=== PATIENT | female | born 1970 | race American Indian/Alaskan Native ===

== ENCOUNTER 2020-01-02 10:29 | Emergency (ER) | payer OTHER ==
[2020-01-02] MEDS ORDERED: ASPIRIN 325 MG TAB PO ONE (10:46)
--- NOTE | 2020-01-02 11:36 | Emergency Department Report ---
ED General Adult HPI - General Chief complaint: Chest Pain Stated complaint: WEAKNESS/HEART PALPITATIONS PUI?: No Time Seen by Provider: 01/02/20 11:31 Source: patient, EMS Mode of arrival: Ambulatory Limitations: No Limitations - History of Present Illness Initial comments: This is a 49-year-old female history of asthma hypertension vertigo dyslipidemia obesity who presents with palpitations for the last 3 days. She also has epigastric discomfort. She feels generalized weak. She also has a history of anemia. Currently symptom-free. She arrived via EMS. -: Gradual, days(s) (3) Location: chest, abdomen Severity scale (0 -10): 3 Quality: dull Consistency: now resolved Improves with: none Worsens with: none Associated Symptoms: denies other symptoms - Related Data Previous Rx's Medication Instructions Recorded Last Taken Type Potassium Chloride [K-Dur] 2 tab PO QDAY 14 Days #28 tablet 01/02/20 Unknown Rx Allergies Allergy/AdvReac Type Severity Reaction Status Date / Time No Known Allergies Allergy Verified 01/02/20 10:46 ED Review of Systems ROS: Stated complaint: WEAKNESS/HEART PALPITATIONS Other details as noted in HPI Comment: All other systems reviewed and negative Constitutional: denies: fever, malaise Cardiovascular: palpitations Gastrointestinal: abdominal pain ED Past Medical Hx - Past Medical History Previous Medical History?: Yes Hx Hypertension: Yes Hx Asthma: Yes Additional medical history: vertigo, hyperlipidemia, anemia - Social History Smoking Status: Never Smoker - Medications Home Medications: Home Medications Medication Instructions Recorded Confirmed Last Taken Type Potassium Chloride [K-Dur] 2 tab PO QDAY 14 Days #28 tablet 01/02/20 Unknown Rx ED Physical Exam - General Limitations: No Limitations General appearance: alert, in no apparent distress - Head Head exam: Present: atraumatic, normocephalic - Eye Eye exam: Present: normal appearance - ENT ENT exam: Present: mucous membranes moist - Neck Neck exam: Present: normal inspection, full ROM - Respiratory Respiratory exam: Present: normal lung sounds bilaterally. Absent: respiratory distress, wheezes, rales, rhonchi - Cardiovascular Cardiovascular Exam: Present: regular rate, normal rhythm, normal heart sounds. Absent: systolic murmur, diastolic murmur, rubs, gallop - GI/Abdominal GI/Abdominal exam: Present: soft, normal bowel sounds. Absent: distended, tenderness, guarding, rebound - Extremities Exam Extremities exam: Present: normal inspection - Neurological Exam Neurological exam: Present: alert, oriented X3 - Psychiatric Psychiatric exam: Present: normal affect, normal mood - Skin Skin exam: Present: warm, dry, intact, normal color. Absent: rash ED Course Vital Signs 01/02/20 01/02/20 10:38 11:24 Temperature 98.2 F Pulse Rate 78 82 Respiratory 18 18 Rate Blood Pressure 183/92 Blood Pressure 154/86 [Left] O2 Sat by Pulse 96 100 Oximetry ED Medical Decision Making - Lab Data Result diagrams: 01/02/20 11:42 01/02/20 11:42 Laboratory Results - last 24 hr 01/02/20 01/02/20 11:42 11:42 WBC 7.8 RBC 5.24 H Hgb 12.1 Hct 36.8 MCV 70 L MCH 23 L MCHC 33 RDW 21.1 H Plt Count 284 Lymph % (Auto) 16.6 [place] % (Auto) 8.9 H Eos % (Auto) 0.3 Baso % (Auto) 0.4 Lymph # 1.3 [place] # 0.7 Eos # 0.0 Baso # 0.0 Seg Neutrophils % 73.8 H Seg Neutrophils # 5.8 Sodium 139 Potassium 3.4 L Chloride 100.8 Carbon Dioxide 24 Anion Gap 18 BUN 13 Creatinine 0.7 Estimated GFR > 60 BUN/Creatinine Ratio 19 Glucose 143 H Calcium 9.5 Troponin T < 0.010 - EKG Data 01/02/20 11:34 EKG obtained 1104 Normal sinus rhythm rate 80 bpm normal axis normal intervals no ST elevation nonspecific T wave pattern - Radiology Data Radiology results: report reviewed No acute findings chest radiograph according to radiology impression - Medical Decision Making Patient presents with palpitations and epigastric pain. No evidence of arrhythmia at this time. Differential diagnosis includes PVCs, paroxysmal atrial fibrillation. I do not suspect acute coronary syndrome or pulmonary embolism. I have referred her to [facility]. I strongly recommended cardiac stress testing and cardiology evaluation. Epigastric pain possibly due to dyspepsia, peptic ulcer disease, GERD. I recommended famotidine [id number]. Mild hypokalemia patient states that she may be on diuretic. Prescribed 2 weeks of potassium chloride. She will follow-up with her primary care physician Vital Signs - 24 hr 06/01/20 06/01/20 10:38 11:24 Temperature 98.2 F Pulse Rate 78 82 Respiratory 18 18 Rate Blood Pressure 183/92 Blood Pressure 154/86 [Left] O2 Sat by Pulse 96 100 Oximetry Critical care attestation.: If time is entered above; I have spent that time in minutes in the direct care of this critically ill patient, excluding procedure time. ED Disposition Clinical Impression: Palpitations, Hypokalemia Disposition: DC- TO HOME OR SELFCARE Is pt being admited?: No Does the pt Need Aspirin: No Condition: Stable Instructions: Palpitations (ED), Hypokalemia (ED) Prescriptions: Potassium Chloride [K-Dur] 2 tab PO QDAY 14 Days #28 tablet Referrals: PRIMARY CARE, [Referring] - BRYN
--- NOTE | 2020-01-02 11:55 | XRay Report ---
CHEST 1 VIEW 01/02/2020 10:48 AM INDICATION / CLINICAL INFORMATION: Chest Pain. COMPARISON: None available. FINDINGS: SUPPORT DEVICES: None. HEART / MEDIASTINUM: No significant abnormality. LUNGS / PLEURA: No significant pulmonary or pleural abnormality. No pneumothorax. ADDITIONAL FINDINGS: No significant additional findings. IMPRESSION: 1. No acute abnormality of the chest. Signer Name: Wilian Gray MD Signed: 01/02/2020 11:50 AM Workstation Name: [id number]
[2020-01-02 11:57] LABS: Basophils % (Auto) 0.4 % (0.0-1.8); Eosinophils % (Auto) 0.3 % (0.0-4.3); Hematocrit 36.8 % (30.3-42.9); Hemoglobin 12.1 gm/dl (10.1-14.3); Lymphocytes # (Auto) 1.3 K/mm3 (1.2-5.4); Lymphocytes % (Auto) 16.6 % (13.4-35.0); Mean Corpuscular HGB Conc 33 % (30-34); Mean Corpuscular Volume 70 fl (79-97); Monocytes # (Auto) 0.7 K/mm3 (0.0-0.8); Monocytes % (Auto) 8.9 % (0.0-7.3); Platelet Count 284 K/mm3 (140-440); Red Blood Count 5.24 M/mm3 (3.65-5.03)
[2020-01-02 11:59] LABS: Red Cell Distribution Width 21.1 % (13.2-15.2)
[2020-01-02 12:18] LABS: BUN/Creatinine Ratio 19; Blood Urea Nitrogen 13 mg/dL (7-17); Calcium 9.5 mg/dL (8.4-10.2); Hemolysis Index 19
[2020-01-02 12:55] VITALS: BP 140/76
== END 2020-01-02 13:09 | disposition home or self-care (01) ==
LOC: ED 10:29
DX: R00.2 Palpitations (principal); E87.6 Hypokalemia; I10 Essential (primary) hypertension; J45.909 Unspecified asthma, uncomplicated; R42 Dizziness and giddiness; D64.9 Anemia, unspecified; E78.5 Hyperlipidemia, unspecified; Z79.899 Other long term (current) drug therapy
CPT/HCPCS: 36415; 71045; 80048; 84484; 85025

== ENCOUNTER 2020-02-20 21:09 | Emergency (ER) | payer OTHER ==
[2020-02-20 23:14] LABS: Basophils # (Auto) 0.1 K/mm3 (0.0-0.1); Basophils % (Auto) 0.8 % (0.0-1.8); Eosinophils # (Auto) 0.1 K/mm3 (0.0-0.4); Eosinophils % (Auto) 0.7 % (0.0-4.3); Hematocrit 38.7 % (30.3-42.9); Hemoglobin 12.2 gm/dl (10.1-14.3); Lymphocytes # (Auto) 2.6 K/mm3 (1.2-5.4); Lymphocytes % (Auto) 26.3 % (13.4-35.0); Mean Corpuscular HGB Conc 32 % (30-34); Mean Corpuscular Volume 73 fl (79-97); Monocytes # (Auto) 0.9 K/mm3 (0.0-0.8); Monocytes % (Auto) 8.9 % (0.0-7.3); Platelet Count 280 K/mm3 (140-440); Red Blood Count 5.29 M/mm3 (3.65-5.03); Red Cell Distribution Width 16.6 % (13.2-15.2)
[2020-02-20 23:35] LABS: Alanine Aminotransferase 20 units/L (7-56); Albumin 4.3 g/dL (3.9-5); BUN/Creatinine Ratio 15; Blood Urea Nitrogen 9 mg/dL (7-17); Calcium 9.2 mg/dL (8.4-10.2); Hemolysis Index 21
[2020-02-21 01:16] LABS: Bilirubin,Urine NEG (Negative); Blood,Urine NEG (Negative); Color,Urine Yellow (Yellow); Mucus,Urine FEW /HPF; Protein,Urine <15 mg/dL mg/dL (Negative); Urobilinogen,Urine < 2.0 mg/dL (<2.0); WBC,Urine < 1.0 /HPF (0.0-6.0)
--- NOTE | 2020-02-21 04:07 | Emergency Department Report ---
- General Chief complaint: Abdominal Pain Stated complaint: WEAKNESS PUI?: No Time Seen by Provider: 02/21/20 03:57 Source: patient Mode of arrival: Ambulatory Limitations: No Limitations - History of Present Illness Initial comments: This is a 49-year-old female with history of hypertension asthma hypokalemia who presents with generalized weakness. She has fatigue. She has increased appetite. She was evaluated by her physician today. Serum studies were obtained to evaluate for hormone imbalance perimenopausal syndrome. Her diuretic was discontinued due to hypokalemia. She denies abdominal pain. She denies chest pain. She denies cough. Denies fever. MD Complaint: generalized weakness -: Gradual, week(s) (Several weeks) Location: generalized Severity: moderate Consistency: constant Improves with: none Worsens with: none Context: new medication Associated Symptoms: denies other symptoms - Related Data Previous Rx's Medication Instructions Recorded Last Taken Type Ondansetron [Zofran Odt] 4 mg PO Q8HR #30 tab.rapdis 02/15/20 Unknown Rx Potassium Chloride [K-Dur] 2 tab PO QDAY 14 Days #28 tablet 02/15/20 Unknown Rx Allergies Allergy/AdvReac Type Severity Reaction Status Date / Time tramadol Allergy Vomiting Verified 02/20/20 22:39 ED Review of Systems ROS: Stated complaint: WEAKNESS Other details as noted in HPI Comment: All other systems reviewed and negative Constitutional: malaise. denies: fever Respiratory: denies: cough, shortness of breath Cardiovascular: denies: chest pain Gastrointestinal: denies: abdominal pain, nausea, vomiting ED Past Medical Hx - Past Medical History Previous Medical History?: Yes Hx Hypertension: Yes Hx Asthma: Yes Additional medical history: vertigo, hyperlipidemia, anemia - Surgical History Past Surgical History?: Yes Additional Surgical History: x2 - Social History Smoking Status: Never Smoker Substance Use Type: None - Medications Home Medications: Home Medications Medication Instructions Recorded Confirmed Last Taken Type Ondansetron [Zofran Odt] 4 mg PO Q8HR #30 tab.rapdis 02/15/20 Unknown Rx Potassium Chloride [K-Dur] 2 tab PO QDAY 14 Days #28 tablet 02/15/20 Unknown Rx ED Physical Exam - General Limitations: No Limitations General appearance: alert, in no apparent distress - Head Head exam: Present: atraumatic, normocephalic - Eye Eye exam: Present: normal appearance - ENT ENT exam: Present: mucous membranes moist - Neck Neck exam: Present: normal inspection - Respiratory Respiratory exam: Present: normal lung sounds bilaterally. Absent: respiratory distress - Cardiovascular Cardiovascular Exam: Present: regular rate, normal rhythm, normal heart sounds. Absent: systolic murmur, diastolic murmur, rubs, gallop - GI/Abdominal GI/Abdominal exam: Present: soft, normal bowel sounds. Absent: distended, tenderness, guarding, rebound - Extremities Exam Extremities exam: Present: normal inspection - Neurological Exam Neurological exam: Present: alert, oriented X3 - Psychiatric Psychiatric exam: Present: normal affect, normal mood - Skin Skin exam: Present: warm, dry, intact, normal color. Absent: rash ED Medical Decision Making - Lab Data Result diagrams: 02/20/20 22:51 02/20/20 22:51 Laboratory Results - last 24 hr 02/20/20 02/20/20 02/20/20 22:51 22:51 Unknown WBC 10.0 RBC 5.29 H Hgb 12.2 Hct 38.7 MCV 73 L MCH 23 L MCHC 32 RDW 16.6 H Plt Count 280 Lymph % (Auto) 26.3 [place] % (Auto) 8.9 H Eos % (Auto) 0.7 Baso % (Auto) 0.8 Lymph # 2.6 [place] # 0.9 H Eos # 0.1 Baso # 0.1 Seg Neutrophils % 63.3 Seg Neutrophils # 6.3 Sodium 137 Potassium 4.1 Chloride 104.2 Carbon Dioxide 20 L Anion Gap 17 BUN 9 Creatinine 0.6 L Estimated GFR > 60 BUN/Creatinine Ratio 15 Glucose 117 H Calcium 9.2 Total Bilirubin 0.20 AST 20 ALT 20 Alkaline Phosphatase 47 Total Protein 8.4 H Albumin 4.3 Albumin/Globulin Ratio 1.0 Lipase 43 Urine Color Yellow Urine Turbidity Clear Urine pH 6.0 Ur Specific [place] 1.011 Urine Protein <15 mg/dl Urine Glucose (UA) Neg Urine Ketones Neg Urine Blood Neg Urine Nitrite Neg Urine Bilirubin Neg Urine Urobilinogen < 2.0 Ur Leukocyte Esterase Neg Urine WBC (Auto) < 1.0 Urine RBC (Auto) 2.0 U Epithel Cells (Auto) 2.0 Urine Mucus Few - Medical Decision Making This is a 49-year-old who presents with generalized malaise, fatigue, increased appetite. CBC noted for microcytosis. Normal hemoglobin hematocrit. Potassium 4.1 today. I suggested evaluation for hypothyroidism and COVID-19 infection. Also recommended daily multivitamin. Patient is likely nutrient deficient with the evidence of microcytosis on complete blood count. Discharged home. Critical care attestation.: If time is entered above; I have spent that time in minutes in the direct care of this critically ill patient, excluding procedure time. ED Disposition Clinical Impression: Generalized weakness Disposition: DC-01 TO HOME OR SELFCARE Is pt being admited?: No Does the pt Need Aspirin: No Condition: Stable Instructions: Weakness (ED) Referrals: PRIMARY CARE, [Primary Care Provider] - 3-5 Days
[2020-02-21 05:20] VITALS: BP 173/108
== END 2020-02-21 04:20 | disposition home or self-care (01) ==
LOC: ED 21:09
DX: R53.1 Weakness (principal); R53.83 Other fatigue; I10 Essential (primary) hypertension; J45.909 Unspecified asthma, uncomplicated; Z86.2 Personal history of diseases of the blood and blood-forming organs and certain disorders involving the immune mechanism; Z98.890 Other specified postprocedural states; Z88.6 Allergy status to analgesic agent
CPT/HCPCS: 36415; 80053; 81001; 83690; 85025; 99283

== ENCOUNTER 2020-03-30 10:42 | Observation (INO) | payer OTHER ==
--- NOTE | 2020-03-30 11:04 | Emergency Department Report ---
HPI - General Chief Complaint: Neuro Symptoms/Deficit Time Seen by Provider: 03/30/20 10:49 - HPI HPI: This is a 49-year-old -[place] female presents to the emergency department via EMS from home as a potential code stroke. EMS says that there in itial call was for left-sided weakness, left-sided facial droop and stuttering slurred speech. At the time of my examination the patient is singing very loudly without any stuttering or slurred speech and does not have any obvious left-sided droop or weakness. When I asked the patient what occurred this morning the patient began stuttering and describing the previously mentioned symptoms, as well as a generalized headache. Based on her chart, and her recent visits here, the patient has a past medical history of hypertension, asthma, and potentially some perimenopausal hormone imbalance. She did not receive anything for symptoms in route. ED Past Medical Hx - Past Medical History Hx Hypertension: Yes Hx Asthma: Yes Additional medical history: vertigo, hyperlipidemia, anemia - Surgical History Additional Surgical History: x2 - Social History Smoking Status: Never Smoker - Medications Home Medications: Home Medications Medication Instructions Recorded Confirmed Last Taken Type Ondansetron [Zofran Odt] 4 mg PO Q8HR #30 tab.rapdis 02/15/20 Unknown Rx Potassium Chloride [K-Dur] 2 tab PO QDAY 14 Days #28 tablet 02/15/20 Unknown Rx ED Review of Systems ROS: Stated complaint: STROKE Other details as noted in HPI Comment: All other systems reviewed and negative Constitutional: weakness. denies: chills, fever Eyes: denies: eye pain, vision change ENT: denies: ear pain, throat pain Respiratory: denies: cough, shortness of breath Cardiovascular: denies: chest pain, palpitations Gastrointestinal: denies: abdominal pain, vomiting Genitourinary: denies: dysuria, discharge Musculoskeletal: denies: back pain, arthralgia Skin: denies: rash, lesions Neurological: headache, weakness, other (stuttering slurred speech) Physical Exam - Physical Exam Physical Exam: GENERAL: The patient is well-developed well-nourished. HENT: Normocephalic. Atraumatic. Patient has moist mucous membranes. EYES: Extraocular motions are intact. No nystagmus. NECK: Supple. Trachea is midline. CHEST/LUNGS: Clear to auscultation. There is no respiratory distress noted. HEART/CARDIOVASCULAR: Regular. There is no tachycardia. ABDOMEN: Abdomen is soft, nontender. Patient has normal bowel sounds. There is no abdominal distention. SKIN: Skin is warm and dry. NEURO: The patient is awake, alert, and oriented. The patient is cooperative. The patient has no focal neurologic deficits. There is some stuttering speech with mild aphasia. Cranial nerves II through XII grossly intact. No facial asymmetry. MUSCULOSKELETAL: There is no tenderness or deformity. There is no limitation range of motion. There is no evidence of acute injury. ED Course - Reevaluation(s) Reevaluation #1: 03/30/20 16:57 Lab Results 03/30/20 03/30/20 03/30/20 Range/Units 11:13 11:13 11:13 WBC 9.0 (4.5-11.0) K/mm3 RBC 5.23 H (3.65-5.03) M/mm3 Hgb 11.7 (10.1-14.3) gm/dl Hct 36.4 (30.3-42.9) % MCV 70 L (79-97) fl MCH 23 L (28-32) pg MCHC 32 (30-34) % RDW 17.1 H (13.2-15.2) % Plt Count 302 (140-440) K/mm3 Lymph % (Auto) 26.6 (13.4-35.0) % [place] % (Auto) 9.5 H (0.0-7.3) % Eos % (Auto) 0.8 (0.0-4.3) % Baso % (Auto) 0.5 (0.0-1.8) % Lymph # 2.4 (1.2-5.4) K/mm3 [place] # 0.8 (0.0-0.8) K/mm3 Eos # 0.1 (0.0-0.4) K/mm3 Baso # 0.0 (0.0-0.1) K/mm3 Seg Neutrophils % 62.6 (40.0-70.0) % Seg Neutrophils # 5.6 (1.8-7.7) K/mm3 PT 13.5 (12.2-14.9) Sec. INR 1.02 (0.87-1.13) APTT 26.1 (24.2-36.6) Sec. Thrombin Time (15.1-19.6) Sec. Sodium 141 (137-145) mmol/L Potassium 3.3 L (3.6-5.0) mmol/L Chloride 104.2 (98-107) mmol/L Carbon Dioxide 20 L (22-30) mmol/L Anion Gap 20 mmol/L BUN 14 (7-17) mg/dL Creatinine 1.0 (0.6-1.2) mg/dL Estimated GFR > 60 ml/min BUN/Creatinine Ratio 14 % Glucose 116 H (65-100) mg/dL Calcium 9.4 (8.4-10.2) mg/dL Troponin T < 0.010 (0.00-0.029) ng/mL Urine Opiates Screen Urine Methadone Screen Ur Barbiturates Screen Ur Phencyclidine Scrn Ur Amphetamines Screen U Benzodiazepines Scrn Urine Cocaine Screen U Marijuana (THC) Screen Drugs of Abuse Note Plasma/Serum Alcohol (0-0.07) % 03/30/20 03/30/20 03/30/20 Range/Units 11:13 11:13 12:33 WBC (4.5-11.0) K/mm3 RBC (3.65-5.03) M/mm3 Hgb (10.1-14.3) gm/dl Hct (30.3-42.9) % MCV (79-97) fl MCH (28-32) pg MCHC (30-34) % RDW (13.2-15.2) % Plt Count (140-440) K/mm3 Lymph % (Auto) (13.4-35.0) % [place] % (Auto) (0.0-7.3) % Eos % (Auto) (0.0-4.3) % Baso % (Auto) (0.0-1.8) % Lymph # (1.2-5.4) K/mm3 [place] # (0.0-0.8) K/mm3 Eos # (0.0-0.4) K/mm3 Baso # (0.0-0.1) K/mm3 Seg Neutrophils % (40.0-70.0) % Seg Neutrophils # (1.8-7.7) K/mm3 PT (12.2-14.9) Sec. INR (0.87-1.13) APTT (24.2-36.6) Sec. Thrombin Time 18.0 (15.1-19.6) Sec. Sodium (137-145) mmol/L Potassium (3.6-5.0) mmol/L Chloride (98-107) mmol/L Carbon Dioxide (22-30) mmol/L Anion Gap mmol/L BUN (7-17) mg/dL Creatinine (0.6-1.2) mg/dL Estimated GFR ml/min BUN/Creatinine Ratio % Glucose (65-100) mg/dL Calcium (8.4-10.2) mg/dL Troponin T (0.00-0.029) ng/mL Urine Opiates Screen Negative Urine Methadone Screen Negative Ur Barbiturates Screen Negative Ur Phencyclidine Scrn Negative Ur Amphetamines Screen Negative U Benzodiazepines Scrn Negative Urine Cocaine Screen Negative U Marijuana (THC) Screen Negative Drugs of Abuse Note Disclamer Plasma/Serum Alcohol < 0.01 (0-0.07) % - Consultations Consultation #1: 03/30/20 11:08 Patient was seen by the telemedicine neurologist upon her arrival to the CT scanner and he continued his evaluation after the CT scan of the head was completed with the patient back in room 23. The neurologist feels that there are some inconsistencies in the patient's examination but did recommend and offer TPA to the patient. The patient understands the risks versus benefits, as well as the reason for giving TPA, as well as the alternative options and she has declined receiving the TPA. The patient has also declined having CT angiography studies of the head and neck completed. 03/30/20 12:08 Patient still declines TPA but has agreed for the CT angiography studies which have now been ordered. ED Medical Decision Making - Lab Data Result diagrams: 03/30/20 11:13 03/30/20 11:13 - EKG Data -: EKG Interpreted by Ut EKG shows normal: sinus rhythm, axis, intervals, QRS complexes, ST-T waves Rate: normal - EKG Data When compared to previous EKG there are: previous EKG unavailable Interpretation: normal EKG - Radiology Data Radiology results: report reviewed CT HEAD WITHOUT CONTRAST INDICATION / CLINICAL INFORMATION: Code stroke TECHNIQUE: All CT scans at this location are performed using CT dose reduction for ALARA by means of automated exposure control. COMPARISON: None available. FINDINGS: HEMORRHAGE: No evidence of intracranial hemorrhage or extra-axial fluid collection. EXTRA-AXIAL SPACES: Cortical sulci, sylvian fissures and basilar cisterns have an unremarkable appearance. VENTRICULAR SYSTEM: The ventricular system is of normal size and configuration. CEREBRAL PARENCHYMA: No areas of abnormal brain parenchymal attenuation are identified. There is no indication of recent infarction. MIDLINE SHIFT OR HERNIATION: There is no mass effect. CEREBELLUM / BRAINSTEM: Brainstem and cerebellum have an unremarkable appearance. MIDLINE STRUCTURES:No abnormalities of the pituitary gland or pineal region are identified. INTRACRANIAL VESSELS:No abnormalities are identified on this noncontrast head CT. ORBITS: visualized portions of the orbits have an unremarkable appearance. SOFT TISSUES of HEAD: No significant abnormality. CALVARIUM: Evaluation of bone windows reveals no abnormalities. PARANASAL SINUSES / MASTOID AIR CELLS: Paranasal sinuses are free from inflammatory mucosal disease. Mastoid air cells are normally pneumatized. IMPRESSION: 1. No intracranial abnormalities are identified on head CT without contrast. CTA HEAD: Intracranial vertebral arteries: No significant abnormality. Basilar artery: No significant abnormality. Posterior cerebral arteries: No significant abnormality. Intracranial internal carotid arteries: No significant abnormality. Anterior cerebral arteries: No significant abnormality. Middle cerebral arteries: No significant abnormality. Dural venous sinuses:Not optimally opacified. No significant abnormality. CTA NECK: Aortic arch: No significant abnormality. Cervical vertebral arteries: No significant abnormality. Common carotid arteries: No significant abnormality. Cervical in ternal carotid arteries: No significant abnormality. Additional findings: None. IMPRESSION: 1. No large vessel occlusion or significant stenosis in the neck or intracranial arteries. - Medical Decision Making This patient presents to the emergency department with some left-sided weakness, slurred and stuttering speech that was witnessed by the family this morning. She came in as a code stroke. Upon my initial examination I do not see the left-sided weakness, facial asymmetry, and the patient is singing without any obvious aphasia or dysarthria. However, when the patient stops singing and starts to describe this morning's events she does once again have the stuttering speech and mild aphasia. CT scan of the head without contrast did not show any bleed, shift, mass, ischemia, or any other acute process. Patient was seen by the telemedicine neurologist who suggested TPA to the patient but she refused this treatment. At first the patient was refusing CT angiography studies as well but after I spoke with her she agreed to get the CT angiography to rule out large vessel occlusion. These came back negative for any thrombus, stenosis, or any other acute process. Patient's labs have been mostly unremarkable including CBC, metabolic panel, troponin, UDS, except for very mild hypokalemia that was treated with potassium chloride. The patient was given a full dose aspirin and will be admitted to the hospital for further evaluation and treatment. She was accepted for admission by the hospitalist, Dr. Valderrama. Critical Care Time: Yes Critical care time in (mins) excluding proc time.: 35 Critical care attestation.: If time is entered above; I have spent that time in minutes in the direct care of this critically ill patient, excluding procedure time. Critical care time was spent on this patient in doing her initial evaluation, multiple re- evaluations, ordering and interpretation of labs and imaging, discussion with the telemedicine neurologist, discussion with the radiologist, discussion with the hospitalist service, and multiple discussions with the patient herself. Critical Care Time: 35 minutes ED Disposition Clinical Impression: Difficulty speaking, Stroke-like symptoms Hypertension Qualifiers: Hypertension type: essential hypertension Qualified Code(s): I10 - Essential (primary) hypertension Disposition: 09 OP ADMIT IP TO THIS HOSP Is pt being admited?: No Condition: Fair Time of Disposition: 15:18
--- NOTE | 2020-03-30 11:11 | Emergency Department Report ---
ED Neuro Deficit HPI - General Chief Complaint: Neuro Symptoms/Deficit Stated Complaint: STROKE Time Seen by Provider: 03/30/20 10:49 Source: EMS Mode of arrival: Stretcher Limitations: Other - History of Present Illness Initial Comments: [facility] TeleNeurology Consult Services Date of Service: 03/30/2020 10:30:38 Impression: Rule Out Acute Ischemic Stroke Comments/Sign-Out: acute onset difficulty speaking/stuttering - Speech is only intermittently abnormal, and conversion disorder is possible. However, L frontotemporal stroke cannot be ruled out, and tpa was offered to the patient - after hearing the risks and benefits, she declined. A CTA head/neck was also attempted but the patient refused to have IV contrast. Mechanism of Stroke: Possible Thromboembolic Possible Cardioembolic Small Vessel Disease Metrics: Last Known Well: 03/30/2020 10:00:00 [employer] Notification Time: 03/30/2020 10:29:38 Arrival Time: 03/30/2020 10:42:00 Stamp Time: 03/30/2020 10:30:38 Time First Login Attempt: 03/30/2020 10:37:00 Video Start Time: 03/30/2020 10:37:00 Symptoms: difficulty speaking NIHSS Start Assessment Time: 03/30/2020 10:53:03 Patient is not a candidate for Alteplase/Activase. Patient was not deemed candidate for Alteplase/Activase thrombolytics because of The risks/benefits/alternatives of IV tpa, including a 6 percent risk of brain bleed and 3 percent risk of , was reviewed with the patient, and she declined IV tpa.. Video End Time: 03/30/2020 11:06:19 CT head showed no acute hemorrhage or acute core infarct. CT head was reviewed. Lower Likelihood of Large Vessel Occlusion but Following Stat Studies are Recommended CTA Head and Neck. ED Physician notified of diagnostic impression and management plan on 03/30/2020 11:06:20 Our recommendations are outlined below. Recommendations: Activate Stroke Protocol Admission/Order Set Stroke/Telemetry Floor Neuro Checks Bedside Swallow Eval DVT Prophylaxis IV Fluids, Normal Saline Head of Bed 30 Degrees Euglycemia and Avoid Hyperthermia (PRN Acetaminophen) start ASA if CT head is neg for hemorrhage. Routine Consultation with Inhouse Neurology for Follow up Care Sign Out: Discussed with Emergency Department Provider History of Present Illness: Patient is a 49 year old Female. Patient was brought by EMS for symptoms of difficulty speaking 49 yo woman who was LSN at approx 1000 when she started stuttering and having slurred speech. She also noted L facial weakness. The clinical change was witnessed by the patient's family at approx 1000. She did start singing en route, which was normal per EMS. No blood thinners. Of note, she was singing upon arrival without difficulty, but when asked what happened she started stuttering. Last seen normal was within 4.5 hours. There is no history of hemorrhagic complications or intracranial hemorrhage. There is no history of Recent Anticoagulants. There is no history of recent major surgery. There is no history of recent stroke. Past Medical History: Anticoagulant use: No Antiplatelet use: No Examination: 1A: Level of Consciousness - Alert; keenly responsive + 0 1B: Ask Month and Age - Both Questions Right + 0 1C: Blink Eyes & Squeeze Hands - Performs Both Tasks + 0 2: Test Horizontal Extraocular Movements - Normal + 0 3: Test Visual Gardiner - No Visual Loss + 0 4: Test Facial Palsy (Use Grimace if Obtunded) - Normal symmetry + 0 5A: Test Left Arm Motor Drift - No Drift for 10 Seconds + 0 5B: Test Right Arm Motor Drift - No Drift for 10 Seconds + 0 6A: Test Left Leg Motor Drift - No Drift for 5 Seconds + 0 6B: Test Right Leg Motor Drift - No Drift for 5 Seconds + 0 7: Test Limb Ataxia (FNF/Heel-Gregorio) - No Ataxia + 0 8: Test Sensation - Normal; No sensory loss + 0 9: Test Language/Aphasia - Severe Aphasia: Fragmentary Expression, Inference Needed, Cannot Identify Materials + 2 10: Test Dysarthria - Normal + 0 11: Test Extinction/Inattention - No abnormality + 0 NIHSS Score: 2 Patient/Family was informed the Neurology Consult would happen via TeleHealth consult by way of interactive audio and video telecommunications and consented to receiving care in this manner. Due to the immediate potential for life-threatening deterioration due to underlying acute neurologic illness, I spent 35 minutes providing critical care. This time includes time for face to face visit via telemedicine, review of [facility] records, imaging studies and discussion of findings with providers, the patient and/or family. Dr Pelon [facility] Case [id number] - Related Data Home Medications: Previous Rx's Medication Instructions Recorded Last Taken Type Ondansetron [Zofran Odt] 4 mg PO Q8HR #30 tab.rapdis 02/15/20 Unknown Rx Potassium Chloride [K-Dur] 2 tab PO QDAY 14 Days #28 tablet 02/15/20 Unknown Rx Allergies/Adverse Reactions: Allergies Allergy/AdvReac Type Severity Reaction Status Date / Time tramadol Allergy Vomiting Verified 02/20/20 22:39 ED Review of Systems ROS: Stated complaint: STROKE Other details as noted in HPI Constitutional: weakness. denies: chills, fever Eyes: denies: eye pain, vision change ENT: denies: ear pain, throat pain Respiratory: denies: cough, shortness of breath Cardiovascular: denies: chest pain, palpitations Gastrointestinal: denies: abdominal pain, vomiting Genitourinary: denies: dysuria, discharge Musculoskeletal: denies: back pain, arthralgia Skin: denies: rash, lesions Neurological: headache, weakness, other (stuttering slurred speech) ED Past Medical Hx - Past Medical History Hx Hypertension: Yes Hx Asthma: Yes Additional medical history: vertigo, hyperlipidemia, anemia - Surgical History Additional Surgical History: x2 - Social History Smoking Status: Never Smoker - Medications Home Medications: Home Medications Medication Instructions Recorded Confirmed Last Taken Type Ondansetron [Zofran Odt] 4 mg PO Q8HR #30 tab.rapdis 02/15/20 Unknown Rx Potassium Chloride [K-Dur] 2 tab PO QDAY 14 Days #28 tablet 02/15/20 Unknown Rx ED Neuro Physical Exam - General Limitations: Other Suspected Stroke: Yes - NIHSS Assessment Interval: Baseline 1a. Level of Consciousness: alert/keenly responsive 1b. LOC Questions: answers both correctly 1c. LOC Commands: performs tasks correctly 2. Best Gaze: normal 3. Visual: no visual loss 4. Facial Palsy: normal symmetrical movement 5b. Motor Arm Right: no drift 5a. Motor Arm Left: no drift 6a. Motor Leg Left: no drift 6b. Motor Leg Right: no drift 7. Limb Ataxia: absent 8. Sensory: normal 9. Best Language: severe aphasia 10. Dysarthria: normal 11. Extinction/Inattention: no abnormality Total Score: 2 Stroke Severity: Minor Stroke Critical care attestation.: If time is entered above; I have spent that time in minutes in the direct care of this critically ill patient, excluding procedure time. ED Disposition Clinical Impression: Difficulty speaking Disposition: DC09 OP ADMIT IP TO THIS HOSP Is pt being admited?: Yes Condition: Stable
[2020-03-30 11:20] LABS: Basophils % (Auto) 0.5 % (0.0-1.8); Eosinophils # (Auto) 0.1 K/mm3 (0.0-0.4); Eosinophils % (Auto) 0.8 % (0.0-4.3); Hematocrit 36.4 % (30.3-42.9); Hemoglobin 11.7 gm/dl (10.1-14.3); Lymphocytes # (Auto) 2.4 K/mm3 (1.2-5.4); Lymphocytes % (Auto) 26.6 % (13.4-35.0); Mean Corpuscular HGB Conc 32 % (30-34); Monocytes # (Auto) 0.8 K/mm3 (0.0-0.8); Monocytes % (Auto) 9.5 % (0.0-7.3); Platelet Count 302 K/mm3 (140-440); Red Blood Count 5.23 M/mm3 (3.65-5.03); Red Cell Distribution Width 17.1 % (13.2-15.2)
[2020-03-30 11:21] LABS: Mean Corpuscular Volume 70 fl (79-97)
--- NOTE | 2020-03-30 11:27 | Cat Scan Report ---
CT HEAD WITHOUT CONTRAST INDICATION / CLINICAL INFORMATION: Code stroke TECHNIQUE: All CT scans at this location are performed using CT dose reduction for ALARA by means of automated e xposure control. COMPARISON: None available. FINDINGS: HEMORRHAGE: No evidence of intracranial hemorrhage or extra-axial fluid collection. EXTRA-AXIAL SPACES: Cortical sulci, sylvian fissures and basilar cisterns have an unremarkable appear ance. VENTRICULAR SYSTEM: The ventricular system is of normal size and configuration. CEREBRAL PARENCHYMA: No areas of abnormal brain parenchymal attenuation are identified. There is no i ndication of recent infarction. MIDLINE SHIFT OR HERNIATION: There is no mass effect. CEREBELLUM / BRAINSTEM: Brainstem and cerebellum have an unremarkable appearance. MIDLINE STRUCTURES:No abnormalities of the pituitary gland or pineal region are identified. INTRACRANIAL VESSELS:No abnormalities are identified on this noncontrast head CT. ORBITS: visualized portions of the orbits have an unremarkable appearance. SOFT TISSUES of HEAD: No significant abnormality. CALVARIUM: Evaluation of bone windows reveals no abnormalities. PARANASAL SINUSES / MASTOID AIR CELLS: Paranasal sinuses are free from inflammatory mucosal disease. Mastoid air cells are normally pneumatized. IMPRESSION: 1. No intracranial abnormalities are identified on head CT without contrast. CODE STROKE: Time of Communication ([employer] EM[employer]EE/CDT): 1020 Central standard time Licensed Practitioner Receiving Report: Dr. Sorto of the emergenc y department. Signer Name: Kolby Becerra MD Signed: 03/30/2020 11:22 AM Workstation Name: [id number]
[2020-03-30 11:31] LABS: INR 1.02 (0.87-1.13); Partial Thromboplastin Time 26.1 Sec. (24.2-36.6)
[2020-03-30 11:36] LABS: BUN/Creatinine Ratio 14; Blood Urea Nitrogen 14 mg/dL (7-17); Calcium 9.4 mg/dL (8.4-10.2); Hemolysis Index 6
[2020-03-30] MEDS ORDERED: POTASSIUM CHLORIDE ER 20 MEQ TAB PO ONE (11:39)
[2020-03-30 13:02] LABS: Amphetamine Screen,Urine Negative; Benzodiazepines Screen,Urine Negative; Cannabinoid Screen,Urine Negative; Cocaine Screen,Urine Negative; Methadone Screen,Urine Negative; Opiate Screen,Urine Negative
[2020-03-30] MEDS ORDERED: ASPIRIN 81 MG TAB CHEW PO ONE (13:17)
--- NOTE | 2020-03-30 14:43 | Cat Scan Report ---
CTA HEAD AND NECK WITH CONTRAST HISTORY: Stroke symptoms COMPARISON: None. TECHNIQUE: All CT scans at this location are performed using CT dose reduction for ALARA by means of automated exposure control.. 3-D/MIP reformats postprocessed. Percentage stenosis is determined by d irect quantitative measurements of diseased internal carotid artery diameter compared with normal dis veronica internal carotid artery reference segments or by criteria similar to NASCET where applicable. CONTRAST: 100 ml of Omnipaque 350 FINDINGS: CT HEAD: BRAIN / INTRACRANIAL CONTENTS: No acute hemorrhage, mass effect, midline shift, or hydrocephalus. No appreciable acute large territorial or lacunar infarct. ORBITS: No significant abnormality of visualized orbits. SINUSES / MASTOIDS: No significant abnormality of visualized sinuses and mastoid air cells. CTA HEAD: Intracranial vertebral arteries: No significant abnormality. Basilar artery: No significant abnormality. Posterior cerebral arteries: No significant abnormality. Intracranial internal carotid arteries: No significant abnormality. Anterior cerebral arteries: No significant abnormality. Middle cerebral arteries: No significant abnormality. Dural venous sinuses:Not optimally opacified. No significant abnormality. CTA NECK: Aortic arch: No significant abnormality. Cervical vertebral arteries: No significant abnormality. Common carotid arteries: No significant abnormality. Cervical internal carotid arteries: No significant abnormality. Additional findings: None. IMPRESSION: 1. No large vessel occlusion or significant stenosis in the neck or intracranial arteries. Signer Name: Hebert Rabago MD Signed: 03/30/2020 2:39 PM Workstation Name: [id number]
[2020-03-30] MEDS ORDERED: METOCLOPRAMIDE 10 MG TAB PO PRN (15:49)
[2020-03-30] MEDS ORDERED: ACETAMINOPHEN 325 MG TAB PO PRN ×2 (15:49)
[2020-03-30] MEDS ORDERED: PROMETHAZINE 25 MG RECT SUPP PR PRN (15:49)
[2020-03-30] MEDS ORDERED: ONDANSETRON 4 MG/2 ML INJ IV PRN ×2 (15:49)
[2020-03-30] MEDS ORDERED: MAGNESIUM HYDROXIDE (MOM) ORAL LIQD UDC PO PRN (15:49)
[2020-03-30] MEDS ORDERED: SODIUM CHLORIDE 0.9% 1000 ML 1,000 ML IV SCH (17:00)
[2020-03-30] MEDS ORDERED: ACETAMINOPHEN 325 MG TAB ONE (17:13)
[2020-03-30] MEDS ORDERED: ALBUTEROL 2.5 MG/3 ML NEBU IH PRN (19:38)
--- NOTE | 2020-03-30 19:44 | History and Physical Report ---
History of Present Illness Date of examination: 03/30/20 Date of admission: 03/30/20 15:18 Chief complaint: Sudden onset of stuttering this morning History of present illness: Patient is a 49-year-old female with history of hypertension, asthma, hypokalemia and anemia and intermittent dizziness presents to the ED with complaints of sudden onset of stuttering/speech difficulty this morning. Patient is alert and oriented. She denies any focal weakness. But complains of generalized weakness for more than a month. While in the ED, teleneurology consult was obtained by the ED physician. Patient was offered TPA but she declined. CTA of the head and neck showed no large vessel occlusion. CT of the head showed no hemorrhage. Patient is being admitted for stroke work-up. Past History Past Medical History: anemia, hypertension, other (Asthma) Past Surgical History: Social history: no significant social history Family history: diabetes, hypertension Medications and Allergies Allergies Allergy/AdvReac Type Severity Reaction Status Date / Time tramadol Allergy Vomiting Verified 02/20/20 22:39 Home Medications Medication Instructions Recorded Confirmed Last Taken Type Ondansetron [Zofran Odt] 4 mg PO Q8HR #30 tab.rapdis 02/15/20 Unknown Rx Potassium Chloride [K-Dur] 2 tab PO QDAY 14 Days #28 tablet 02/15/20 Unknown Rx Active Meds: Active Medications Acetaminophen (Tylenol) 650 mg PO Q4H PRN PRN Reason: Pain MILD(1-3)/Fever >100.5/BLAKE Last Admin: 03/30/20 17:24 Dose: 650 mg Documented by: Albuterol (Proventil) 2.5 mg IH Q4HRT PRN PRN Reason: Shortness Of Breath Aspirin (Aspirin) 325 mg PO QDAY IRVIN Atorvastatin Calcium (Lipitor) 40 mg PO QHS IRVIN Bisacodyl (Dulcolax) 10 mg TN QDAY PRN PRN Reason: Constipation Sodium Chloride (Nacl 0.9% 1000 Ml) 1,000 mls @ 42 mls/hr IV DIRECT IRVIN Labetalol HCl (Labetalol) 10 mg IV Q5MIN PRN PRN Reason: Hypertension Magnesium Hydroxide (Milk Of Magnesia) 30 ml PO Q4H PRN PRN Reason: Constipation Metoclopramide HCl (Reglan) 10 mg PO Q6H PRN PRN Reason: Nausea And Vomiting Ondansetron HCl (Zofran) 4 mg IV Q8H PRN PRN Reason: Nausea And Vomiting Promethazine HCl (Phenergan) 25 mg TN Q6H PRN PRN Reason: Nausea And Vomiting Sodium Chloride (Sodium Chloride Flush Syringe 10 Ml) 10 ml IV BID IRVIN Sodium Chloride (Sodium Chloride Flush Syringe 10 Ml) 10 ml IV PRN PRN PRN Reason: LINE FLUSH Sodium Chloride (Sodium Chloride Flush Syringe 10 Ml) 10 ml IV PRN PRN PRN Reason: LINE FLUSH Review of Systems Constitutional: weakness, no weight loss, no weight gain, no fever, no chills Ears, nose, mouth and throat: vertigo (Denies any vertigo at this time but history of intermittent vertigo), no ear pain, no nasal congestion, no hoarseness, no sore throat Cardiovascular: high blood pressure, no chest pain, no palpitations, no syncope, no lightheadedness, no shortness of breath Respiratory: no cough, no shortness of breath, no wheezing Gastrointestinal: no abdominal pain, no nausea, no vomiting, no diarrhea, no constipation, no melena Musculoskeletal: no neck pain Integumentary: no rash Neurological: weakness, no head injury Psychiatric: no anxiety, no depression Exam - Constitutional Vitals: Temp Pulse Resp BP Pulse Ox 99.1 F 93 H 20 161/87 99 03/30/20 11:30 03/30/20 12:00 03/30/20 12:00 03/30/20 12:00 03/30/20 12:00 General appearance: Present: no acute distress, well-nourished - EENT Eyes: Present: PERRL, EOM intact ENT: hearing intact, clear oral mucosa - Neck Neck: Present: supple, normal ROM - Respiratory Respiratory effort: normal Respiratory: bilateral: CTA - Cardiovascular Rhythm: regular Heart Sounds: Present: S1 & S2 - Extremities Extremities: No edema - Abdominal General gastrointestinal: Present: soft, non-tender. Absent: hepatomegaly, splenomegaly - Rectal Rectal Exam: deferred - Integumentary Integumentary: Present: clear - Musculoskeletal Musculoskeletal: strength equal bilaterally (Motor power 5/5 bilaterally and no drift was noted, sensory intact) - Psychiatric Psychiatric: appropriate mood/affect - Neurologic Neurologic: no focal deficits, moves all extremities, other (Speech is intermittently stuttering and sometimes her speech is fairly fluent) HEART Score - HEART Score Troponin: Troponin T < 0.010 ng/mL (0.00-0.029) 03/30/20 11:13 Results - Labs CBC & Chem 7: 03/30/20 11:13 03/30/20 11:13 Labs: Abnormal lab results 03/30/20 03/30/20 Range/Units 11:13 11:13 RBC 5.23 H (3.65-5.03) M/mm3 MCV 70 L (79-97) fl MCH 23 L (28-32) pg RDW 17.1 H (13.2-15.2) % [place] % (Auto) 9.5 H (0.0-7.3) % Potassium 3.3 L (3.6-5.0) mmol/L Carbon Dioxide 20 L (22-30) mmol/L Glucose 116 H (65-100) mg/dL Assessment and Plan - Patient Problems (1) Difficulty speaking Current Visit: Yes Status: Acute Plan to address problem: Patient admitted for stroke work-up NIHSS score is [address] head and CTA head and neck results reviewed We will schedule for MRI brain in a.m. Check echo if MRI is positive for stroke Aspirin daily High intensity statin Check lipid panel PT OT and speech therapy consult (2) Microcytosis Current Visit: Yes Status: Chronic Plan to address problem: Hemoglobin is in the normal range No further work-up (3) Hypokalemia Current Visit: Yes Status: Acute Plan to address problem: Potassium supplemented Monitor electrolytes (4) History of asthma Current Visit: Yes Status: Acute Plan to address problem: Not in exacerbation Neb. treatments with albuterol as needed (5) Hypertension Current Visit: Yes Status: Chronic Qualifiers: Hypertension type: essential hypertension Plan to address problem: Permissive hypertension for the first 24 hours Labetalol IV as needed for BP systolic greater than 210
[2020-03-31 05:36] LABS: Blood Urea Nitrogen 11 mg/dL (7-17); Calcium 9.3 mg/dL (8.4-10.2); Chol/HDL Ratio 2.95 %; HDL Cholesterol 43 mg/dL (40-59); Hemolysis Index 4; LDL Cholesterol,Direct 78 mg/dL (50-130)
[2020-03-31 05:46] LABS: BUN/Creatinine Ratio 18
[2020-03-31] MEDS: ASPIRIN 325 MG TAB PO SCH (09:38)
--- NOTE | 2020-03-31 11:17 | Magnetic Resonance Report ---
MRI BRAIN WITHOUT CONTRAST INDICATION / CLINICAL INFORMATION: Right facial numbness and speech difficulty. TECHNIQUE: Multiplanar, multisequence MR images of the brain were obtained. COMPARISON: Head CT on 03/30/2020 FINDINGS: BRAIN / INTRACRANIAL CONTENTS: No acute ischemia, acute hemorrhage, mass effect, midline shift, or hy drocephalus. No chronic infarct. There are mild areas of increased signal intensity on FLAIR imaging in the white matter of the cerebral hemispheres. Given the location and appearance, these most like ly reflect chronic small vessel ischemic change. These are considered to be advanced (even for the pa tient's age) and probably indicate chronic hypertension, diabetes, and/or chronic kidney disease. CRANIOCERVICAL JUNCTION: No significant abnormality. VASCULAR FLOW-VOIDS: No significant abnormality. ORBITS: No significant abnormality of visualized orbits. SINUSES / MASTOIDS: No significant abnormality of visualized sinuses and mastoid air cells. ADDITIONAL FINDINGS: None. IMPRESSION: 1. No acute infarct or other acute intracranial abnormality. 2. Mild chronic small vessel ischemic change in the cerebral white matter. Signer Name: Hebert Rabago MD Signed: 03/31/2020 11:12 AM Workstation Name: [email or web address]
[2020-03-31] MEDS ORDERED: NON-FORMULARY EACH (Losartan Potassium [Losartan Potassium] 100 MG) PO SCH (12:30)
[2020-03-31] MEDS: LOSARTAN 50 MG TAB PO SCH (12:51)
[2020-03-31] MEDS: amLODIPine 10 MG TAB PO SCH (12:52)
[2020-03-31] MEDS ORDERED: POTASSIUM CHLORIDE ER 20 MEQ TAB PO ONE (14:00)
--- NOTE | 2020-03-31 20:56 | Progress Note ---
Assessment and Plan --Possible TIA Patient admitted for stroke work-up NIHSS score was 2 Monitor at telemetry with frequent neurochecks CT head and CTA head and neck results reviewed MRI brain this morning showed no acute infract Order 2D echo Aspirin daily High intensity statin Ordered lipid panel PT OT and speech therapy consulted -- Microcytosis Hemoglobin is in the normal range No further work-up -- Hypokalemia Potassium supplemented Monitor electrolytes --History of asthma Not in exacerbation Neb. treatments with albuterol as needed -- Hypertension Permissive hypertension for the first 24 hours Labetalol IV as needed for BP systolic greater than 210 --DVT prophylaxis, start on Lovenox 03/31: MRI showed no acute infarct, SBP remains persistently elevated, 2D echo pending. DC planning when clinically stable and 2D echo is normal Subjective Date of service: 03/31/20 Interval history: Patient seen and examined. Medical records and medication list reviewed. No acute event overnight noted by the RN. Patient denies any chest pain or difficulty breathing. Patient is tolerating diet. Discussed plan of care at bedside with patient. Her BP continue to remain elevated 2D echo pending Objective - Exam Narrative Exam: General appearance: Present: no acute distress, well-nourished - EENT Eyes: Present: PERRL, EOM intact ENT: hearing intact, clear oral mucosa - Neck Neck: Present: supple, normal ROM - Respiratory Respiratory effort: normal Respiratory: bilateral: CTA - Cardiovascular Rhythm: regular Heart Sounds: Present: S1 & S2 - Extremities Extremities: No edema - Abdominal General gastrointestinal: Present: soft, non-tender. Absent: hepatomegaly, s plenomegaly - Rectal Rectal Exam: deferred - Integumentary Integumentary: Present: clear - Musculoskeletal Musculoskeletal: strength equal bilaterally (Motor power 5/5 bilaterally and no drift was noted, sensory intact) - Psychiatric Psychiatric: appropriate mood/affect - Neurologic Neurologic: no focal deficits, moves all extremities, other ( her speech is fairly fluent) - Constitutional Vitals: Vital Signs - 12hr 03/31/20 03/31/20 03/31/20 11:00 11:13 15:58 Temperature 98.2 F 98.4 F Pulse Rate 79 91 H Respiratory 18 18 Rate Blood Pressure 170/77 152/79 O2 Sat by Pulse 98 97 99 Oximetry 03/31/20 03/31/20 03/31/20 16:00 20:25 20:45 Temperature 98.4 F Pulse Rate 73 93 H Respiratory 18 20 Rate Blood Pressure 152/87 O2 Sat by Pulse 100 98 Oximetry - Labs CBC & Chem 7: 03/30/20 11:13 03/31/20 04:14 Labs: Abnormal lab results 03/31/20 Range/Units 04:14 Potassium 3.4 L (3.6-5.0) mmol/L Glucose 104 H (65-100) mg/dL HEART Score - HEART Score Troponin: Troponin T < 0.010 ng/mL (0.00-0.029) 03/30/20 11:13
[2020-03-31] MEDS: METOPROLOL TARTRATE 50 MG TAB PO SCH (22:19)
[2020-04-01 07:34] LABS: Blood Urea Nitrogen 12 mg/dL (7-17); Calcium 9.5 mg/dL (8.4-10.2); Hemolysis Index 44
[2020-04-01 07:36] LABS: BUN/Creatinine Ratio 20
[2020-04-01] MEDS: LOSARTAN 50 MG TAB PO SCH (10:24)
[2020-04-01] MEDS: ASPIRIN 325 MG TAB PO SCH (10:24)
[2020-04-01] MEDS: METOPROLOL TARTRATE 50 MG TAB PO SCH (10:24)
[2020-04-01] MEDS: amLODIPine 10 MG TAB PO SCH (10:24)
--- NOTE | 2020-04-01 15:13 | Discharge Summary ---
Providers - Providers Date of Admission: 03/30/20 15:18 Attending physician: REINA FRANKS 03/30/20 15:50 Occupational Therapy Evaluate and Treat [CONS] Routine Comment: Reason For Exam: Neuro deficits Physical Therapy Evaluation and Treat [CONS] Routine Comment: Reason For Exam: Neuro deficits 03/30/20 15:53 Speech Therapy Evaluation and Treat [CONS] Routine Reason For Exam: swallow eval Primary care physician: COTTON HEADER Hospitalization Condition: Fair Pertinent studies: CT head, CTA head and neck, MRI brain. Hospital course: 49-year-old male presents to ED for evaluation. Patient found to have acute onset difficulty speaking. Patient transported to [facility] for care and evaluation. Patient seen and evaluated in the emergency department. Lab and imaging studies reviewed. Tele-neurology was consulted. Patient was offered TPA and was deemed a good candidate but patient declined. Patient admitted to telemetry and initiated on CVA protocol. Patient symptoms mildly improved with supportive care. Patient medically optimized on the day of discharge. Patient seen and evaluated prior to discharge but no significant new physical exam findings this admission. Patient medically optimized. Patient discharged home with physical therapy, Occupational Therapy and speech therapy. Patient instructed to follow-up with primary care physician within 3 to 5 days, and to follow-up with neurology PRN. 35 minutes dedicated to patient discharge and coordination of care. Disposition: DC-01 TO HOME OR SELFCARE - Discharge Diagnoses (1) CVA (cerebral vascular accident) Status: Acute (2) Hypertension Status: Chronic Qualifiers: Hypertension type: essential hypertension Qualified Code(s): I10 - Essential (primary) hypertension Core Measure Documentation - Palliative Care Palliative Care/ Comfort Measures: Not Applicable - Core Measures Any of the following diagnoses?: stroke - Stroke Discharge Requirements Statin for LDL = or >70 mg/dl on DC: Yes Anticoag for atrial fib/atrial flutter: Not Applicable Antithrombotic for ischemic stroke: Yes Exam - Constitutional Vitals: Temp Pulse Resp BP Pulse Ox 98.4 F 98 H 20 160/80 98 04/01/20 07:55 04/01/20 10:21 04/01/20 10:21 04/01/20 10:21 04/01/20 10:21 General appearance: Present: no acute distress, well-nourished - EENT Eyes: Present: PERRL ENT: hearing intact, clear oral mucosa - Neck Neck: Present: supple, normal ROM - Respiratory Respiratory effort: normal Respiratory: bilateral: CTA - Cardiovascular Heart Sounds: Present: S1 & S2. Absent: rub, click - Extremities Extremities: pulses symmetrical, No edema Peripheral Pulses: within normal limits - Abdominal General gastrointestinal: Present: soft, non-tender, non-distended, normal bowel sounds Female genitourinary: Present: normal - Integumentary Integumentary: Present: clear, warm, dry - Musculoskeletal Musculoskeletal: gait normal, strength equal bilaterally - Psychiatric Psychiatric: appropriate mood/affect, intact judgment & insight - Neurologic Neurologic: CNII-XII intact, moves all extremities Plan Activity: advance as tolerated Follow up with: PRIMARY CARE, [Primary Care Provider] - 7 Days Prescriptions: amLODIPine 10 mg PO DAILY #30 Aspirin 325 mg PO QDAY #30 tablet Losartan [Cozaar] 100 mg PO QDAY #30 tablet AtorvaSTATin [Lipitor] 40 mg PO QHS #30 tablet Other Discharge Orders: Home Health Care (Amb) Location: None Selected Occupational Therapy (Amb) Location: None Selected Physicial Therapy (Amb) Location: None Selected Speech Therapy (Amb) Location: None Selected
[2020-04-01 15:48] VITALS: BP 170/84
== END 2020-04-01 22:40 | disposition home or self-care (01) ==
LOC: ED 10:42 → 4A 15:18
PROVIDERS: ADMIT Internal Medicine; ATTEND Internal Medicine
DX: I63.9 Cerebral infarction, unspecified (principal); I10 Essential (primary) hypertension; E87.6 Hypokalemia; J45.909 Unspecified asthma, uncomplicated; E78.5 Hyperlipidemia, unspecified; R71.8 Other abnormality of red blood cells; R47.9 Unspecified speech disturbances; R29.90 Unspecified symptoms and signs involving the nervous system; F81.81 Disorder of written expression; Z98.891 History of uterine scar from previous surgery; Z79.82 Long term (current) use of aspirin; Z79.899 Other long term (current) drug therapy
CPT/HCPCS: 36415; 70450; 70496; 70498; 70551; 80048; 80061; 80307; 84484; 85025; 85610; 85670; 85730; 87641; 93005; 94640; 97161; 97165; 99291; G0378; Q9967; 80320; G0480